=== PATIENT | male | born 1980 | race Caucasian/White ===

== ENCOUNTER 2021-04-20 20:35 | Inpatient (IN) | payer OTHER, SELFPAY ==
--- NOTE | ~2021-04-20 | XR_ITS ---
EXAMINATION: XR foot LT min 3V DATE: 04/20/2021 21:24 INDICATION: Left foot swelling and open wound TECHNIQUE: Dorsoplantar, lateral, and 2 oblique views of the left foot were obtained. COMPARISON: None. FINDINGS: There is a soft tissue ulceration of the first toe. There is osteopenia and fragmentation a t the distal aspect of the first proximal phalanx. There is also osteopenia and deformity at the prox imal aspect of the first distal phalanx. There is irregular joint space narrowing at the first interp halangeal joint. There is blunting of the second distal phalanx which could reflect prior infection o r resection. There is mild irregularity at the distal aspect of the third distal phalanx. The tarsals and metatarsals are unremarkable. There is dorsal soft tissue swelling of the foot. IMPRESSION: 1. Findings detailed above, consistent with osteomyelitis of the first toe. Reviewed, dictated and finalized at location A.
[2021-04-20 20:40] VITALS: BP 136/98; PULSE 117; RESP 18; TEMP 36.6; O2SAT 100
--- NOTE | 2021-04-20 21:10 | ED.GENADULT ---
HPI - General Adult General Chief complaint: Extremity Injury, Lower Stated complaint: pt sts pcp sent him to have foot removed. Time Seen by Provider: 04/20/21 20:58 Source: patient, family, RN notes reviewed and old records reviewed History of Present Illness HPI narrative: 40-year-old male presents to emergency department for left foot pain and swelling for the past year, progressively worsening over the past 2 weeks. Patient seen by his primary care physician today, and sent to emergency department for further evaluation. He states he has been on oral antibiotics in the past. He has not take anything for the pain so far. No chest pain or shortness of breath. No abdominal pain. No fever or chills. Related Data Home Medications Medication Instructions Recorded Confirmed ibuprofen [IBU] 800 mg PO TID PRN 04/21/21 04/21/21 Allergies Allergy/AdvReac Type Severity Reaction Status Date / Time No Known Allergies Allergy Verified 04/20/21 20:45 Review of Systems Review of Systems: Narrative: CONSTITUTIONAL: Denies fever, chills, or sweats. EYES: Denies visual changes, redness, or discharge. ENT: Denies rhinorrhea, congestion, sore throat, or otalgia. CARDIOVASCULAR: Denies chest pain, palpitations, or edema. RESPIRATORY: Denies cough or dyspnea. GASTROINTESTINAL: Denies abdominal pain, nausea, vomiting, or diarrhea. GENITOURINARY: Denies dysuria or hematuria. SKIN: Denies rash or itching. MUSCULOSKELETAL: Denies back pain, joint pain, or myalgia. NEUROLOGIC: Denies headache, numbness, dizziness, or weakness. PSYCHIATRIC: Denies anxiety or depression. All systems reviewed & are unremarkable except as noted in HPI and below (ROS) ON LICENSE OF [facility] Family History Family History (Updated 04/21/21 @ 00:35 by Amairani Jefferson RN) Mother Diabetes mellitus Father Diabetes mellitus Social History Social History Smoking packs per day: 0.5 Smoking cigarettes per day: 10.0 Years smoked: 27 Smoking pack-years: 13.50 Smoking status: Heavy tobacco smoker Tobacco type: cigarettes Second hand tobacco smoke exposure: No Alcohol intake: never Substance use type: marijuana Gender identity (if verbalized by the patient): Male Spiritual care concerns: No Exam Narrative: Exam Narrative: GENERAL: Well-appearing, well-nourished, and in no acute distress. HEAD: Normocephalic, atraumatic. EYES: PERRLA and EOMI. ENT: Nares clear, no rhinorrhea or epistaxis. Mucous membranes moist. NECK: Supple. CHEST: Clear to auscultation. No respiratory distress. HEART: Regular rate and rhythm. No murmur heard. Normal peripheral pulses. ABDOMEN: Soft, nontender, nondistended, normal active bowel sounds. EXTREMITIES: Wound to bottom of left foot and bottom of the left first toe with swelling and erythema foot SKIN: Warm. NEURO: No focal deficits. Alert and oriented x3. PSYCH: Normal mood and affect. Course Course Emergency Course: 22:00 re-evaluated pt, no new complaints 22:45 - discussed case with Dr. Zelaya, accepts admit 22:55 - spoke with Dr. Reyes, will consult Vital Signs Vital signs: Vital Signs Temperature 36.6 C 04/20/21 20:40 Pulse Rate 117 H 04/20/21 20:40 Respiratory Rate 18 04/20/21 20:40 Blood Pressure 136/98 H 04/20/21 20:40 Pulse Oximetry 100 04/20/21 20:40 Temperature 36.3 C L 04/21/21 00:34 Pulse Rate 76 04/21/21 00:34 Respiratory Rate 20 04/21/21 00:34 Blood Pressure 138/84 04/21/21 00:34 Pulse Oximetry 99 04/21/21 00:34 Medical Decision Making Medical Records Medical records reviewed: Yes I reviewed the external patient's medical records. Vital Signs Vital Signs: Vital Signs Temperature 36.6 C 04/20/21 20:40 Pulse Rate 117 H 04/20/21 20:40 Respiratory Rate 18 04/20/21 20:40 Blood Pressure 136/98 H 04/20/21 20:40 Pulse Oximetry 100 04/20/21 20:40 Temperature 36.3 C L 04/21/21 00:
[2021-04-20 21:27] LABS: Basophils Absolute Auto 0.1 K/mm3 (0.0-0.1); Basophils Percent Auto 0.6 % (0.2-1.2); Eosinophils Absolute Auto 0.3 K/mm3 (0-0.3); Eosinophils Percent Auto 2.7 % (0-4.4); Hematocrit 46.5 % (42.0-52.0); Hemoglobin 15.5 g/dL (14.0-18.0); Immature Granulocyte Absolute 0.11 K/mm3 (0.00-0.031); Immature Granulocyte Percent A 0.9 % (0-0.5); Lymphocytes Absolute Auto 2.05 K/mm3 (0.9-3.2); Lymphocytes Percent Auto 16.5 % (18.3-44.2); Mean Corpuscular HGB Conc 33.3 g/dl (32-36); Mean Corpuscular Volume 87.1 fl (80-100); Mean Platelet Volume 8.9 fl (7.4-10.4); Monocytes Absolute Auto 0.8 K/mm3 (0.1-0.6); Monocytes Percent Auto 6.6 % (2.6-8.5); Neutrophils Percent Auto 72.7 % (45.5-73.1); Platelet Count Result 388 k/mm3 (150-375); Red Blood Count 5.34 M/mm3 (4.6-6.20); Red Cell Distribution Width 12.7 % (11.5-14.5); White Blood Count 12.4 K/mm3 (4.5-10.0)
[2021-04-20] MEDS: SODIUM CHLORIDE 0.9% IV 1,000 ML 999 ML IV CONT ×2 (21:31→22:48)
[2021-04-20] MEDS: KETOROLAC 30 MG/ML VIAL (*BKC) IV PUSH (21:32)
[2021-04-20 21:38] LABS: Lactic Acid Reflex 1.3 mmol/L (0.7-2.1)
[2021-04-20 21:45] LABS: Alanine Aminotransferase 19 U/L (4-50); Alkaline Phosphatase 136 U/L (38-126); Anion Gap 6 mmol/L (8-16); Aspartate Amino Transferase 23 U/L (17-59); Bilirubin,Total 0.4 mg/dL (0.2-1.3); Blood Urea Nitrogen 19 mg/dL (9-20); Calcium 10.3 mg/dL (8.4-10.2); Carbon Dioxide 29 mmol/L (22-30); Chloride 95 mmol/L (98-107); Estimated CRCL calculation 145 ml/min; Estimated Glomerular Filt Rate > 60; Glucose 517 mg/dL (75-110); Potassium 5.7 mmol/L (3.4-5.0); Sodium 130 mmol/L (137-145)
[2021-04-20 22:08] VITALS: BP 130/92; PULSE 106; RESP 18; O2SAT 99
[2021-04-20 22:11] LABS: Fractional Inspired Oxygen 21 %; HCO3 VBG 24.7 mEq/l (24.0-30.0); PCO2 VBG 36.1 mmHg (42.0-48.0); PO2 VBG 51.3 mmHg (35.0-45.0)
[2021-04-20 22:13] LABS: Device ROOM AIR; pH VBG 7.453 (7.300-7.400)
[2021-04-20 22:26] LABS: Beta-Hydroxybutyrate/Acetoacetate 0.06 mmol/L (0.02-0.27)
[2021-04-20] MEDS: INSULIN HUMAN REGULAR (*BKC) 100 UNITS/ML 10 UNITS IV PUSH (22:50)
[2021-04-21 00:09] LABS: Glucose Point of Care 365 mg/dl (65-105)
--- NOTE | 2021-04-21 00:28 | ADMGEN ---
This patient, Ortiz Houston, was admitted to Medical Room 259-01. Patient/family oriented to hospital policies and general routines including ID bracelet, bed and alarms, visiting hours, pain management, procedures, bathroom and other care routines, personal items, smoking policy, room service/diet, and visiting hours. Information on how to activate the Rapid Response Team has been discussed. Patient/Family are encouraged to report perceived risks to care and to ask questions if they do not understand what they are told or what they should do.
[2021-04-21 00:33] VITALS: BMI 27.6
[2021-04-21 00:34] VITALS: BP 138/84; PULSE 76; RESP 20; TEMP 36.3; O2SAT 99
[2021-04-21] MEDS: fentaNYL CITRATE INJ (*CRX) 100 MCG/2 ML VIAL 25 MCG IV PUSH ×2 (01:37→05:25)
[2021-04-21] MEDS: LACTATED RINGERS 1,000 ML 125 ML IV CONT (03:26)
[2021-04-21 05:43] VITALS: BP 152/88; PULSE 95; RESP 24; TEMP 36.2; O2SAT 100
[2021-04-21 06:08] LABS: Glucose Point of Care 324 mg/dl (65-105)
[2021-04-21 07:06] LABS: Anion Gap 4 mmol/L (8-16); Blood Urea Nitrogen 17 mg/dL (9-20); CRP 2.5 mg/dL (<1.0); Calcium 8.9 mg/dL (8.4-10.2); Carbon Dioxide 24 mmol/L (22-30); Chloride 103 mmol/L (98-107); Estimated CRCL calculation 222 ml/min; Estimated Glomerular Filt Rate > 60; Glucose 338 mg/dL (75-110); Potassium 4.5 mmol/L (3.4-5.0); Sodium 131 mmol/L (137-145)
[2021-04-21 07:27] LABS: Hemoglobin A1C > 14.0 % (<5.7)
--- NOTE | 2021-04-21 08:27 | PM.IMHP ---
H&P: HPI History of Present Illness Date/Time: 04/21/21 08:27 Patient is 40-year-old male with a past medical history diabetes and hypertension who presented last night to the emergency room for evaluation of his left foot. Patient stated that he has been having these issues his left foot last year and he last had evaluated yesterday by his PCP who recommended that the patient come to the emergency room to get his foot cut off. Patient stated that he went to [facility] last week which he got amoxicillin x7 days. Patient states that this did not have any relief. Patient has also been diagnosed with diabetes since he was 14 or 15 years old he has tried many different treatment plans including metformin however he stated that he has lost lot of weight and that his blood sugar never change with any treatment that he has tried. Patient also stated that last week his blood sugar was 449 NAD his blood sugar was 517, and this morning his blood sugar on labs was 338. Patient also admits to having nausea which he continues to not eating and also stated he has no feeling in his feet which he states is normal for him. patient also stated that he is anxious and really just to go outside to have a cigarette. Patient also said the spleen is getting worse over the years and now is blurred and has been accompanied with migraines. Patient denies chest pain, shortness of breath, constipation, diarrhea, abdominal pain, current headache, syncope, falls, abnormal swelling, lightheadedness, dizziness, or weakness. Patient does state that he has pain with palpitation of the left foot. Left foot is purple black in color small and study of the great toe to the 2nd toe and extends posteriorly on the top of the foot. Pulses are palpable. And compared to the right foot is more swollen. Patient also has abnormal gait. plan of care was discussed patient verbalized understanding all questions were answered. Chief Complaint: Foot infection Review of Systems Review of Systems: All systems reviewed & are unremarkable except as noted in HPI and below PMFSH Past Medical History Medical History Anxiety Diabetes HTN (hypertension) Family History Family History (Updated 04/21/21 @ 09:19 by MIGNON Busch) Mother Diabetes mellitus Hypertension Father Diabetes mellitus Hypertension Grandparent Diabetes mellitus Grandfather and Grandmother on both sides Hypertension Cancer Social History Social History Social History: Patient lives alone, and owns a construction company. He wants to be a full code. Does not want anyone to manage his care. Smoking packs per day: 0.5 Smoking cigarettes per day: 10.0 Years smoked: 27 Smoking pack-years: 13.50 Smoking status: Heavy tobacco smoker Tobacco type: cigarettes Second hand tobacco smoke exposure: No Alcohol intake: never Substance use type: marijuana, crack/cocaine and amphetamines Other substance usage details: Methamphetamines Last use: yesterday Living arrangements: alone Gender identity (if verbalized by the patient): Male Spiritual care concerns: No Meds Home Medications and Allergies Home Medications Medication Instructions Recorded Confirmed Type ibuprofen [IBU] 800 mg PO TID PRN 04/21/21 04/21/21 History Allergies Allergy/AdvReac Type Severity Reaction Status Date / Time No Known Allergies Allergy Verified 04/20/21 20:45 Vital Signs Vital Signs - 24 hr 04/20/21 20:40 04/20/21 22:08 04/21/21 00:34 Temperature 36.6 C 36.3 C L Pulse Rate 117 H 106 H 76 Respiratory Rate 18 18 20 Blood Pressure 136/98 H 130/92 H 138/84 Pulse Oximetry 100 99 99 04/21/21 05:43 Temperature 36.2 C L Pulse Rate 95 Respiratory Rate 24 H Blood Pressure 152/88 H Pulse Oximetry 100 Exam Const: General: cooperative, healthy a
--- NOTE | 2021-04-21 08:53 | PM.CNGS ---
Assessment and Plan Assessment and plan (1) Acute osteomyelitis of toe: Qualifiers: Laterality: left Qualified Code(s): M86.172 - Other acute osteomyelitis, left ankle and foot Code(s): M86.179 - Other acute osteomyelitis, unspecified ankle and foot Status: Acute Assessment and Plan: I have reviewed the x-ray and discussed the findings with the patient. He has chronic wounds to the left great toe and has a relatively newer onset wound to the plantar surface of his left foot. I have recommended incision and drainage of both wounds to be done today in the operating room. I also discussed with him the findings of the osteomyelitis on the x-ray and that this will be a very difficult infection to treat with antibiotics and local wound care alone. This may ultimately result in amputation of the left great toe. Patient would like to try local wound care 1st. I will also await further evaluation by Infectious Disease. I also discussed with him that the poorly controlled diabetes and smoking will make wound healing much more difficult and put at risk for further diabetic foot wound complications. (2) Sepsis: Qualifiers: Sepsis acute organ dysfunction status: without acute organ dysfunction Sepsis type: sepsis due to unspecified organism Qualified Code(s): A41.9 - Sepsis, unspecified organism Code(s): A41.9 - Sepsis, unspecified organism Status: Acute (3) Wound of left foot: Code(s): S91.302A - Unspecified open wound, left foot, initial encounter Status: Acute (4) Uncontrolled diabetes mellitus: Code(s): E11.65 - Type 2 diabetes mellitus with hyperglycemia Status: Acute (5) Polysubstance abuse: Code(s): F19.10 - Other psychoactive substance abuse, uncomplicated Status: Acute (6) Tobacco abuse: Code(s): Z72.0 - Tobacco use Status: Acute History of Present Illness Consult details Consult date: 04/21/21 Reason for consult: wound care Narrative: This is a 40-year-old man who presented to the emergency department overnight with complaints of a complicated left foot wound. He states that he has been dealing with wounds on his foot off and on for the past year. The left great toe wound has been present for nearly a year and he has been to multiple different facilities for treatment. He states that he is been on antibiotics for probably 9 out of the last 12 months. He has a new were foot wound on the arch of his left foot that has been present for about 2 weeks. He denies any injuries to this area. He states that he has been diabetic for about 5 years. He also smokes. I discussed his care with the hospitalist and he also admitted to methamphetamine use. Review of Systems Review of Systems: All systems reviewed & are unremarkable except as noted in HPI and below Eyes: Eyes: Denies change in vision ENT: Denies hearing loss, Denies neck pain and Denies sore throat Cardiovascular: Cardiovascular: Denies chest pain and Denies dyspnea Respiratory: Respiratory: Denies cough, Denies dyspnea and Denies wheezing Genitourinary: Genitourinary: Denies hematuria and Denies dysuria Musculoskeletal: Musculoskeletal: Denies arthralgias, Reports joint swelling ( Left great toe swelling) and Denies neck pain Comments: see HPI Allergic/Immunologic: Allergic/Immunologic: Denies wheezing [facility] Family History Family History Mother Diabetes mellitus Father Diabetes mellitus Social History Social History Smoking packs per day: 0.5 Smoking cigarettes per day: 10.0 Years smoked: 27 Smoking pack-years: 13.50 Smoking status: Heavy tobacco smoker Tobacco type: cigarettes Second hand tobacco smoke exposure: No Alcohol intake: never Substance use type: marijuana Gender identity (if verbalized by the patient): Male
--- NOTE | 2021-04-21 09:30 | PC.NURSE ---
Spoke with patient and Demetrius Okeefe NP about patient wanting to sign out AMA at 0905. He came to the bedside and urged the patient to stay. Patient still wanted to leave. All risks reviewed with patient. Patients IV removed. Patient left at 0930. Demetrius Okeefe NP and Dr. Reyes notified.
--- NOTE | 2021-04-21 10:29 | WPDANESEPPF ---
Anes - Initial Pre Proc Eval Procedure: Operation Date: 04/21/21 13:30 Proposed Procedures p Incision And Drainage Left Foot And Left Great Toe Wound - Luis Alberto Reyes DO Date/Time: 04/21/21 10:29 Surgeon: Alicia Zelaya DO Pre Op Diagnosis: Osteomyelitis with sepsis Patient Data Age: 40 Gender: M Height: 2.03 m Weight: 114.3 kg Last Vital Signs Temp 36.2 C L 04/21/21 05:43 Pulse 95 04/21/21 05:43 Resp 24 H 04/21/21 05:43 BP 152/88 H 04/21/21 05:43 Pulse Ox 100 04/21/21 05:43 Allergies Allergy/AdvReac Type Severity Reaction Status Date / Time No Known Allergies Allergy Verified 04/20/21 20:45 Home Medications Medication Instructions Recorded Confirmed Type ibuprofen [IBU] 800 mg PO TID PRN 04/21/21 04/21/21 History Laboratory Tests 04/20/21 04/20/21 04/20/21 21:14 21:14 21:14 WBC 12.4 K/mm3 H K/mm3 (4.5-10.0) RBC 5.34 M/mm3 M/mm3 (4.6-6.20) Hgb 15.5 g/dL g/dL (14.0-18.0) Hct 46.5 % % (42.0-52.0) MCV 87.1 fl fl (80-100) MCH 29.0 pg pg (26-34) MCHC 33.3 g/dl g/dl (32-36) RDW 12.7 % % (11.5-14.5) Plt Count 388 k/mm3 H k/mm3 (150-375) MPV 8.9 fl fl (7.4-10.4) Immature Gran % (Auto) 0.9 % H % (0-0.5) Neut % (Auto) 72.7 % % (45.5-73.1) Lymph % (Auto) 16.5 % L % (18.3-44.2) Sharp % (Auto) 6.6 % % (2.6-8.5) Eos % (Auto) 2.7 % % (0-4.4) Baso % (Auto) 0.6 % % (0.2-1.2) Lymph # (Auto) 2.05 K/mm3 K/mm3 (0.9-3.2) Sharp # (Auto) 0.8 K/mm3 H K/mm3 (0.1-0.6) Eos # (Auto) 0.3 K/mm3 K/mm3 (0-0.3) Baso # (Auto) 0.1 K/mm3 K/mm3 (0.0-0.1) Abs Immat Gran (auto) 0.11 K/mm3 H K/mm3 (0.00-0.031) Absolute Neuts (auto) 9.0 K/mm3 H K/mm3 (1.3-6.7) Absolute Nucleated RBC 0.0 K/mm3 K/mm3 (0.0-0.012) Nucleated RBC % 0.0 % % (0.0-0.2) VBG pH VBG pCO2 VBG pO2 VBG HCO3 O2 Delivery Device O2 Liters/Min FiO2 Sodium 130 mmol/L L mmol/L (137-145) Potassium 5.7 mmol/L H mmol/L (3.4-5.0) Chloride 95 mmol/L L mmol/L (98-107) Carbon Dioxide 29 mmol/L mmol/L (22-30) Anion Gap 6 mmol/L L mmol/L (8-16) BUN 19 mg/dL mg/dL (9-20) Creatinine 0.80 mg/dL mg/dL (0.7-1.3) Estim Creat Clear Calc 145 ml/min ml/min Estimated GFR > 60 (59 - ) Glucose 517 mg/dL H* mg/dL (75-110) POC Capillary Glucose Hemoglobin A1c Serum Osmolality Lactic Acid 1.3 mmol/L mmol/L (0.7-2.1) Calcium 10.3 mg/dL H mg/dL (8.4-10.2) Total Bilirubin 0.4 mg/dL mg/dL (0.2-1.3) AST 23 U/L U/L (17-59) ALT 19 U/L U/L (4-50) Alkaline Phosphatase 136 U/L H U/L (38-126) C-Reactive Protein Total Protein 9.0 g/dL H g/dL (6.3-8.2) Albumin 4.0 g/dL g/dL (3.5-5.1) Beta-Hydroxybutyrate/Acetoacetate 04/20/21 04/20/21 04/20/21 21:14 21:14 22:07 WBC RBC Hgb Hct MCV MCH MCHC RDW Plt Count MPV Immature Gran % (Auto) Neut % (Auto) Lymph % (Auto) Sharp % (Auto) Eos % (Auto) Baso % (Auto) Lymph # (Auto) Sharp # (Auto) Eos # (Auto) Baso # (Auto) Abs Immat Gran (auto) Absolute Neuts (auto) Absolute Nucleated RBC Nucleated RBC % VBG pH 7.453 H* (7.300-7.400) VBG pCO2 36.1 mmHg L mmHg (42.0-48.0) VBG pO2 51.3 mmHg
== END 2021-04-21 09:30 | disposition left against medical advice (07) | DRG 720 ==
LOC: ANHED 22:57 → ANH2MED 04-21 05:32
PROVIDERS: Admitting Provider Internal Medicine; Emergency Provider Emergency Medicine; Visit Provider Hospitalist
DX: A41.9 Sepsis, unspecified organism (principal); E11.69 Type 2 diabetes mellitus with other specified complication; M86.172 Other acute osteomyelitis, left ankle and foot; S91.302A Unspecified open wound, left foot, initial encounter; E11.65 Type 2 diabetes mellitus with hyperglycemia; F41.9 Anxiety disorder, unspecified; I10 Essential (primary) hypertension; F17.210 Nicotine dependence, cigarettes, uncomplicated; F19.10 Other psychoactive substance abuse, uncomplicated; Z79.1 Long term (current) use of non-steroidal anti-inflammatories (NSAID)
CPT/HCPCS: 36415; 73630; 80048; 80053; 82010; 82803; 82948; 83036; 83605; 83930; 85025; 86140; 87040; 96361; 96365; 96375; 99285; J0692; J1815; J1885; J3010; J3370; J7030; J7040; J7120